=== PATIENT | male | born 1940 | race Caucasian/White ===

== ENCOUNTER → 2017-06-01 | Outpatient (CLI) | payer MEDICARE ==
--- NOTE | 2017-06-01 17:34 | Diagnostic Imaging Report ---
EXAM: Renal Ultrasound INDICATION: \S\CYST OF KIDNEY COMPARISON: Renal ultrasound dated 08/04/2016 TECHNIQUE: Transverse and longitudinal images of the kidneys and bladder were obtained. FINDINGS: Right Kidney: Size: 12.1 cm Echogenicity: Normal Parenchymal thickness: Normal Collecting system: No hydronephrosis Stones: None Cyst/Mass: 1.1 x 1.4 x 1.2 cm and 1.2 x 1.6 x 1.4 cm midpole cysts. 0.8 x 0.8 x 0.7 cm exophytic mid pole cyst. 2.5 x 2.2 x 1.8 cm exophytic inferior pole cyst, previously 1.9 x 2.5 x 21 cm. Left Kidney: Size: 12.2 cm Echogenicity: Normal Parenchymal thickness: Normal Collecting system: No hydronephrosis Stones: None Cyst/Mass: 1.9 x 1.3 x 1.2 cm midpole cyst, previously 1.4 x 1.7 x 1.3 cm. 2.3 x 2 x 2 centimeter exophytic mid/inferior pole cyst, previously 2 x 1.6 x 1.5 cm. Bladder: Unremarkable. Left ureteral jets visualized. IMPRESSION: Slight interval increase in size of the largest bilateral renal cysts within inferior poles when compared to the ultrasound dated 08/04/2016. Additional bilateral renal cysts are not significantly changed, accounting for differences in measurement technique. Signed by: Dr. Dion Shields MD on 06/01/2017 5:30 PM
== END ==
LOC: US 15:30
PROVIDERS: ATTEND Urology
DX: N28.1 Cyst of kidney, acquired (principal)
CPT/HCPCS: 76770

== ENCOUNTER → 2018-03-31 | Day surgery (SDC) | payer MEDICARE ==
[2018-03-30 14:35] LABS: BASOPHILS % 0.7 % (0.0-1.0); EOSINOPHILS # (AUTO) 0.2 (0.0-0.4); HEMATOCRIT 37.6 % (38.2-49.6); HEMOGLOBIN 12.9 g/dL (14.0-18.0); LYMPHOCYTES # (AUTO) 1.2 (1.0-3.2); LYMPHOCYTES % 19.8 % (18.0-39.1); MEAN CORPUSCULAR HEMOGLOBIN 33.2 pg (28-32); MEAN CORPUSCULAR HGB CONC 34.3 g/dL (31-35); MEAN CORPUSCULAR VOLUME 96.7 fL (81-99); MONOCYTES # (AUTO) 0.8 (0.2-0.8); MONOCYTES % 13.3 % (4.4-11.3); NEUTROPHILS # (AUTO) 3.7 (2.1-6.9); NEUTROPHILS % 61.7 % (38.7-80.0); PLATELET COUNT 154 x10e3/uL (140-360); RED BLOOD COUNT 3.89 x10e6/uL (4.3-5.7)
[2018-03-30 14:43] LABS: INR 0.94; PROTHROMBIN TIME 13.4 seconds (11.9-14.5)
[2018-03-30 14:53] LABS: ANION GAP 12.9 mmol/L (8-16); BLOOD UREA NITROGEN 15 mg/dL (7-26); BUN/CREATININE RATIO 14 (6-25); CALCIUM 9.5 mg/dL (8.4-10.2); CARBON DIOXIDE 26 mmol/L (22-29); CHLORIDE 102 mmol/L (98-107); EST GLOMERULAR FILTRATION RATE > 60 ML/MIN (60-); GLUCOSE 99 mg/dL (74-118); POTASSIUM 3.9 mmol/L (3.5-5.1); SODIUM 137 mmol/L (136-145)
--- NOTE | 2018-03-30 16:09 | Diagnostic Imaging Report ---
EXAMINATION: CHEST 2 VIEWS INDICATION: Pre-operative radiograph. COMPARISON: Chest radiograph 09/01/2016. FINDINGS: TUBES and LINES: There is a right-sided dual-chamber pacemaker with leads overlying the right atrium and right ventricle. LUNGS: Lungs are moderately inflated. There is no evidence of pneumonia or pulmonary edema. PLEURA: No pleural effusion or pneumothorax. HEART AND MEDIASTINUM: The cardiomediastinal silhouette is unremarkable. BONES AND SOFT TISSUES: No acute osseous abnormality. Degenerative changes of the visualized spine. UPPER ABDOMEN: No free air under the diaphragm. IMPRESSION: No acute radiographic abnormality. Signed by: Dr. Keily Lozano MD on 03/30/2018 4:05 PM
[2018-03-31] VITALS (8 sets, daily range): BP systolic 157–186; BP diastolic 88–94
[~2018-03-31] VITALS: Ht 180.3 cm; Wt 91.2 kg
[~2018-03-31] MED LIST: BACITRACIN 50,000 UNIT VIAL ONE; CARVEDILOL12.5 MG PO; CEFAZOLIN SOD 1 GM VIAL ONE; FENTANYL CITRATE/PF 100MCG/2 ML INJ ONE; FINASTERIDE5 MG PO; HYDRALAZINE HCL10 MG PO; LIDOCAINE 1% W/EPINEPHRINE 20 ML VIAL ONE; LIDOCAINE HCL 1% LOCAL INJ 20 ML VIAL ONE; MIDAZOLAM HCL 2 MG/2 ML VIAL ONE; OMEGA 3 FISH O1 EACH PO; SODIUM CHLORIDE 0.9% 1000ML 1,000 ML ONE; SODIUM CHLORIDE 0.9% 500ML 1,000 ML ONE; SODIUM CHLORIDE 0.9% 50ML 50 ML ONE
--- OUTSIDE RECORDS SUMMARY | 2018-03-31 10:21 | XMS REPORT | Clinical Summary ---
Author Author [facility] Address Unknown Phone Unavailable Care Team Providers Care Skiver Machine Name Role Phone Asked, No Pcp PCP Unavailable Allergies Not on File Medications Not on file Active Problems Not on file Social History Date Tobacco Use Types Packs/Day Years Used Never Assessed Sex Assigned at Date Recorded Not on file Industry Job Start Date Occupation Not on file Not on file Not on file Travel End Travel History Travel Start No recent travel history available. Last Filed Vital Signs Not on file Plan of Treatment Health Maintenance Due Date Last Done Comments SHINGLES VACCINES (1 of 1990 2) PNEUMOCOCCAL 2005 POLYSACCHARIDE VACCINE AGE 65 AND OVER PNEUMOCOCCAL-13 2005 INFLUENZA VACCINE 09/09/2017 Results Not on fileafter 03/30/2017 Insurance Payer Benefit Subscriber ID Type Phone Address Plan / Group MEDICARE MEDICARE xxxxxxxxxx Medicare [place], [place] PART A AND B AARP AARP xxxxxxxxxxx Commercial SUPPLEMENT Advance Directives Patient has advance care planning documents on file. For more information, maria isabel ramirez contact: Elieser Chan [address] [place], [place] [address] [place] [address]
--- OUTSIDE RECORDS SUMMARY | 2018-03-31 10:21 | XMS REPORT ---
Author Author [facility] Address Unknown Phone Unavailable Care Team Providers Care Roofing Technician Name Role Phone STEPHANIE DAUGHERTY Unavailable Unavailable JAME MCFARLAND Unavailable Unavailable Problems This patient has no known problems. Allergies, Adverse Reactions, Alerts This patient has no known allergies or adverse reactions. Medications This patient has no known medications. Results Test Description Test Time Test Comments Text Results Atomic Results Result Comments CHEST 2 VIEWS 2018-03-30 16:03:[address] [address] Patient Name: KIANA HEARN MR #: [id number] : 1940 Age/Sex: 77/M Req #: [id number] Adm Physician: Ordered by: STEPHANIE DAUGHERTY MD Report #: [id number] Location: [facility] Room/Bed: Procedure: [id number] DX/CHEST 2 VIEWS Exam Date: 03/30/18 Exam Time: 1525 REPORT STATUS: Signed EXAMINATION: CHEST 2 VIEWS INDICATION: Pre-operative radiograph. COMPARISON: Chest radiograph 09/01/2016. FINDINGS: TUBES and LINES: There is a right-sided dual-chamber pacemaker with leads overlying the right atrium and right ventricle. LUNGS: Lungs are moderately inflated. There is no evidence of pneumonia or pulmonary edema. PLEURA: No pleural effusion or pneumothorax. HEART AND MEDIASTINUM: The cardiomediastinal silhouette is unremarkable. BONES AND SOFT TISSUES: No acute osseous abnormality. Degenerative changes of the visualized spine. UPPER ABDOMEN: No free air under the diaphragm. IMPRESSION: No acute radiographic abnormality. Signed by: Dr. Bijan Li MD on 03/30/2018 4:05 PM Dictated By: BIJAN LI MD 160 Transcribed By: OLEGARIO on 03/30/18 1605 COPY TO: STEPHANIE DAUGHERTY MD US RENAL RETROPERITONEAL COMP [place] [address] Patient Name: KIANA HEARN MR #: [id number] : 1940 Age/Sex: 77/M Req #: [id number] Adm Physician: Ordered by: JAME MCFARLAND MD Report #: [id number] Location: US Room/Bed: Procedure: [id number] US/US RENAL RETROPERITONEAL COMP Exam Date: 06/01/17 Exam Time: 1556 REPORT STATUS: Signed EXAM: Renal Ultrasound INDICATION: COMPARISON: Renal ultrasound dated 08/04/2016 TECHNIQUE: Transverse and longitudinal images of the kidneys and bladder were obtained. FINDINGS: Right Kidney: Size: 12.1 cm Echogenicity: Normal Parenchymal thickness: Normal Collecting system: No hydronephrosis Stones: None Cyst/Mass: 1.1 x 1.4 x 1.2 cm and 1.2 x 1.6 x 1.4 cm midpole cysts. 0.8 x 0.8 x 0.7 cm exophytic mid pole cyst. 2.5 x 2.2 x 1.8 cm exophytic inferior pole cyst, previously 1.9 x 2.5 x 21 cm. Left Kidney: Size: 12.2 cm Echogenicity: Normal Parenchymal thickness: Normal Collecting system: No hydronephrosis Stones: None Cyst/Mass: 1.9 x 1.3 x 1.2 cm midpole cyst, previously 1.4 x 1.7 x 1.3 cm. 2.3 x 2 x 2 centimeter exophytic mid/inferior pole cyst, previously 2 x 1.6 x 1.5 cm. Bladder: Unremarkable. Left ureteral jets visualized. IMPRESSION: Slight interval increase in size of the largest bilateral renal cysts within inferior poles when compared to the ultrasound dated 08/04/2016. Additional bilateral renal cysts are not significantly changed, accounting for differences in measurement technique. Signed by: Dr. Dion Venegas MD on 06/01/2017 5:30 PM Dictated By: DION VENEGAS MD 173 Transcribed By: OLEGARIO on 06/01/171729 COPY TO: JAME MCFARLAND MD
--- NOTE | 2018-03-31 10:29 | NUR ---
Received patient to PACU holding room 8. Patient gowned and prepped for procedure. Vital signs stable. IV access obtained. Patient provided with a warm blanket for comfort.
--- NOTE | 2018-03-31 13:45 | NUR ---
Received patient to CCL holding room 10. Patient a&o x 3. Vital signs stable. Patient s/p generator change to right upper chest with pocket revision. Son at bedside.
--- NOTE | 2018-03-31 14:40 | NUR ---
Report given to TIGRE Shanks. Patient sitting up on stretcher eating lunch tray. Patient to discharge at 5pm.
--- NOTE | 2018-03-31 16:45 | NUR ---
Pt meets DC criteria. right shoulder assessed for s/s of complication and presence of hematoma. right arm warm, dry, no discolor, and pulses present. IV removed from right AC . Distal tip appears intact. VS WNL. Pt denies pain, sob, or need at this time. Family at front of hospital (son). Review of discharge paperwork and follow up instructions. [facility] scientficic instruction book in hand. verbalized understanding. Pt to wheelchair and transported to front of hospital. Transferred to private vehicle under own strength w/o incident with DC paperwork in hand. - cgf
--- NOTE | 2018-03-31 19:04 | Operative Report ---
DATE OF PROCEDURE: PROCEDURES: 1. Dual chamber pacemaker replacement. 2. Temporary pacemaker insertion. COMPLICATIONS: None. ANESTHESIA: Versed, fentanyl, and lidocaine. INDICATIONS: Sick sinus syndrome. TECHNIQUE: The patient was draped and prepped in the usual fashion. The right groin was anesthetized with lidocaine. Standard Seldinger technique was used to place a 6-Bengali sheath into the right femoral vein without difficulty. A pacemaker wire was positioned at the apex in the right ventricle. The patient was then re-draped and re-prepped. The left subclavicular area was anesthetized with lidocaine and the pacemaker pocket was opened with 10-blade scalpel. The existing pacemaker generator was dissected free of the pocket. The pocket was irrigated with antibiotic solution. A new ReferStar generator was attached to the existing leads. The new generator was placed in the pocket. The pocket was then closed with 2-0 Vicryl for the subcutaneous closure and 2-0 Vicryl for the subcuticular closure. There were no complications. CONCLUSION: Successful dual chamber pacemaker generator replacement. MD VERA Espinal/MODL /[id number]
== END | disposition home or self-care (01) ==
LOC: CATH LAB 10:19
PROVIDERS: ATTEND Internal Medicine Cardiovascular Disease
DX: Z45.010 Encounter for checking and testing of cardiac pacemaker pulse generator [battery] (principal); I49.5 Sick sinus syndrome; I10 Essential (primary) hypertension; Z01.810 Encounter for preprocedural cardiovascular examination; Z01.812 Encounter for preprocedural laboratory examination; Z01.818 Encounter for other preprocedural examination
CPT/HCPCS: 33228; 36415; 71046; 80048; 85025; 85610; 93005; C1785; J0690; J2001; J2250; J7030; J7040

== ENCOUNTER → 2018-07-29 | Day surgery (SDC) | payer MEDICARE ==
[2018-07-26 15:14] LABS: BASOPHILS % 0.4 % (0.0-1.0); EOSINOPHILS # (AUTO) 0.1 (0.0-0.4); EOSINOPHILS % 1.6 % (0.0-6.0); HEMATOCRIT 38.2 % (38.2-49.6); HEMOGLOBIN 13.1 g/dL (14.0-18.0); LYMPHOCYTES # (AUTO) 1.6 (1.0-3.2); LYMPHOCYTES % 21.4 % (18.0-39.1); MEAN CORPUSCULAR HEMOGLOBIN 33.2 pg (28-32); MEAN CORPUSCULAR HGB CONC 34.3 g/dL (31-35); MEAN CORPUSCULAR VOLUME 96.7 fL (81-99); MONOCYTES # (AUTO) 0.6 (0.2-0.8); MONOCYTES % 8.7 % (4.4-11.3); NEUTROPHILS % 67.8 % (38.7-80.0); PLATELET COUNT 185 x10e3/uL (140-360); RED BLOOD COUNT 3.95 x10e6/uL (4.3-5.7); RED CELL DISTRIBUTION WIDTH 12.7 % (11.7-14.4)
[2018-07-26 15:28] LABS: INR 0.91; PROTHROMBIN TIME 12.7 seconds (11.9-14.5)
[2018-07-26 15:29] LABS: PARTIAL THROMBOPLASTIN TIME 30.3 seconds (23.8-35.5)
[2018-07-26 15:35] LABS: ALANINE AMINOTRANSFERASE 12 IU/L (0-55); ALBUMIN 3.6 g/dL (3.5-5.0); ALBUMIN/GLOBULIN RATIO 1.2 (0.8-2.0); ALKALINE PHOSPHATASE 46 IU/L (40-150); ANION GAP 12.4 mmol/L (8-16); BLOOD UREA NITROGEN 17 mg/dL (7-26); BUN/CREATININE RATIO 15 (6-25); CALCIUM 9.7 mg/dL (8.4-10.2); CARBON DIOXIDE 30 mmol/L (22-29); CHLORIDE 101 mmol/L (98-107); CREATININE, SERUM 1.13 mg/dL (0.72-1.25); EST GLOMERULAR FILTRATION RATE > 60 ML/MIN (60-); GLUCOSE 115 mg/dL (74-118); POTASSIUM 4.4 mmol/L (3.5-5.1); SODIUM 139 mmol/L (136-145)
--- NOTE | 2018-07-26 15:42 | Diagnostic Imaging Report ---
EXAM: CHEST 2 VIEWS, PA and lateral DATE: 07/26/2018 Time stamp on exam: 3:16 PM INDICATION: Preoperative for left heart catheterization COMPARISON: 03/30/2018 FINDINGS: LINES/TUBES: Right chest wall subclavian approach dual lead cardiac device with leads intact again noted. LUNGS: No consolidations or edema. Right lower lobe calcified granuloma. PLEURA: No effusions or pneumothorax. HEART AND MEDIASTINUM: Normal size and contour. BONES AND SOFT TISSUES: No acute findings. Degenerative changes of the spine. IMPRESSION: No acute thoracic abnormality. Signed by: Dr. Ranjith De La Paz DO on 07/26/2018 3:39 PM
[2018-07-29] VITALS (12 sets, daily range): BP systolic 121–158; BP diastolic 76–103
[~2018-07-29] VITALS: Ht 180.3 cm; Wt 93.4 kg
[~2018-07-29] MED LIST changes: -BACITRACIN 50,000 UNIT VIAL ONE; -CEFAZOLIN SOD 1 GM VIAL ONE; +HEPARIN SOD (PORCINE) 1000 UNIT/ML 30ML ONE; +HEPARIN SOD/SOD CHLORIDE 2,000 ML ONE; +IOPAMIDOL 370 MG/ML 200 ML INFUS..BTL INJ ONE; +LASIX40 MG PO; -LIDOCAINE 1% W/EPINEPHRINE 20 ML VIAL ONE; -LIDOCAINE HCL 1% LOCAL INJ 20 ML VIAL ONE; +LIDOCAINE HCL 2% LOCAL 20 ML VIAL ONE; +NITROGLYCERIN/D5W 200 MCG/ML 250 ML ONE; +POTASSIUM CHLO10 ME1 PO; +SODIUM CHLORIDE 0.9% 1000ML 0 ML ONE; -SODIUM CHLORIDE 0.9% 500ML 1,000 ML ONE; -SODIUM CHLORIDE 0.9% 50ML 50 ML ONE; +VERAPAMIL HCL 2.5 MG/ML 2 ML VIAL ONE
--- OUTSIDE RECORDS SUMMARY | 2018-07-29 06:12 | XMS REPORT | Clinical Summary ---
Author Author [facility] Address Unknown Phone Unavailable Care Team Providers Care Social Worker Assistant Name Role Phone Asked, No Pcp PCP Unavailable Allergies No Known Allergies Medications End Date Status Medication Sig Dispensed Refills Start Date Active tamsulosin (FLOMAX) 0.4 Take 0.4 mg 0 mg capsule by mouth daily. Active finasteride (PROSCAR) 5 Take 5 mg by 0 mg tablet mouth daily. Active hydrALAZINE (APRESOLINE) Take 50 mg by 0 50 MG tablet mouth 3 (three) times a day. Active carvedilol (COREG) 25 MG Take 25 mg by 0 tablet mouth daily. Active Problems No known active problems Encounters Care Team Description Date Type Specialty Alex Jose MD GREENLIGHT LASER TRANSURETHRAL RESECTION OF PROSTATE 04/14/2018 Surgery General Surgery Lety Macario FNP-C 04/14/2018 Anesthesia General Surgery Event Alex Jose MD 04/14/2018 Hospital General Surgery Encounter after 07/28/2017 Family History Medical History Relation Name Comments Cancer Father brain Cancer Mother brain Relation Name Status Comments Father Mother Social History Date Tobacco Use Types Packs/Day Years Used Quit: 1960 Former Smoker Smokeless Tobacco: Never Used Alcohol Use Drinks/Week oz/Week Comments Yes 3x/week Sex Assigned at Date Recorded Not on file Industry Job Start Date Occupation Not on file Not on file Not on file Travel End Travel History Travel Start No recent travel history available. Last Filed Vital Signs Time Taken Vital Sign Reading 04/14/2018 11:23 AM YARD OPERATOR Blood Pressure 145/74 04/14/2018 11:23 AM YARD OPERATOR Pulse 61 04/14/2018 9:05 AM YARD OPERATOR Temperature 36.2 C (97.2 F) 04/14/2018 11:23 AM YARD OPERATOR Respiratory Rate 18 04/14/2018 11:23 AM YARD OPERATOR Oxygen Saturation 98% - Inhaled Oxygen - Concentration 04/14/2018 6:15 AM YARD OPERATOR Weight 95.3 kg (210 lb) 04/14/2018 6:15 AM YARD OPERATOR Height 180.3 cm (5' 11") 04/14/2018 6:15 AM YARD OPERATOR Body Mass Index 29.29 Plan of Treatment Health Maintenance Due Date Last Done Comments SHINGLES VACCINES (#1) 1990 65+ PNEUMOCOCCAL VACCINE 2005 (1 of 2 - PCV13) INFLUENZA VACCINE 09/09/2018 Procedures Comments Procedure Name Priority Date/Time Associated Diagnosis NJ AN ELECTIVE Routine 04/14/2018 SUPRAGLOTTIC AIRWAY 7:36 AM YARD OPERATOR Procedure Note - Rajendra Kendrick CRNA - 04/14/2018 7:36 AM YARD OPERATOR Airway Date/Time: 04/14/2018 7:31 AM Performed by: Rajendra Kendrick CRNA Authorized by: Emory Jhaveri MD Location: OR Urgency: Elective Resident/C RNA/AA: Rajendra Kendrick CRNA Performed by: resident/C RNA/AA Preoxygena loyda with 100% O2: Yes C-spine Precaution s Maintained Throughout : Yes Mask Ventilatio n: Easy mask Final Airway Type: Supraglott ic airway Final LMA: I-Gel LMA Size: 5 Number of Attempts at Approach: 1 after 07/28/2017 Results Not on fileafter 07/28/2017 Insurance Type Payer Benefit Subscriber ID Effective Phone Address Plan / Dates Group Medicare MEDICARE MEDICARE xxxxxxxxxxx 2005-P [place], PART A AND resent [place] B Commercial AARP AARP xxxxxxxxxxx 2014-P SUPPLEMENT resent Advance Directives Patient has advance care planning documents on file. For more information, maria isabel ramirez contact: Elieser Chan [address] [place] [address]
--- NOTE | 2018-07-29 08:34 | Operative Report ---
DATE OF PROCEDURE: SURGEON: Shashi Escobedo MD PROCEDURE: Left heart catheterization. INDICATION: 1. Abnormal stress test. 2. Dyspnea. 3. Coronary artery disease. ANESTHESIA: Versed, fentanyl, and lidocaine. COMPLICATIONS: None. TECHNIQUE: The right wrist was draped and prepped in the usual manner. The area was anesthetized with lidocaine. Standard Seldinger technique was used to place a six-Martiniquais sheath into the right radial artery without difficulty. The Putnam catheter was used to selectively engage the left coronary artery and to selectively engage the right coronary artery. There were no complications. RESULTS: As follows: 1. There is a normal left main trunk. 2. There is a large left anterior descending artery, which gave rise to a medium-sized diagonal branch. There was minimal disease in the left anterior descending artery and diagonal branch. 3. There was a medium-sized AV circumflex artery, which gave rise to a large bifurcating obtuse marginal branch. There was minimal disease in the circumflex system. 4. There was a large dominant right coronary artery with minimal disease. 5. The left ventriculogram was not done, but a recent echocardiogram showed an ejection fraction of 40%. CONCLUSION: The patient has minimal coronary artery disease. Shashi Escobedo MD D[facility]/MODL /[id number]
--- NOTE | 2018-07-29 09:45 | NUR ---
0945am Received pt in Rm #9 Identiferx2 [facility] diagnostic no fix. Received report Emory LANDEROS. Back to baseline orientation Respiration regular 100% RA. Abdomen soft and non tender Bilateral PPx4 PT/DP. Iv infusing w/o s/s infiltration. DC plans discussed and will re review with family friend on arrival for pickup per pt approval Pat . Rt TR band with normal neuro vascular function. No oozing or hematoma No gross issues pain pallor pressure or dysrhythmia. 1000 Tr band air release continued Normal neuro vascular function.No bleed. 1015 Tr band air release continue Normal neuro vascular function. No Bleed. 1030 Tr band air release continued Normal neuro vascular function No Bleed. Denies c/o Cp or SOB No gross issues pain pallor pressure or dysrhythmia. NORMAL NEURO VASCULAR FUNCTION. Coban with 2x2 gauze Tegaderm and Coban with arm splint. ds/rn
--- NOTE | 2018-07-29 11:00 | NUR ---
1100am TR-band air removal completed No hematoma or bleeding No gross issues pain pallor pressure or dysrhythmia. Positive neuro vascular function. Discussed dc plans with family friend motor coach bus driver Signed papers and copies dc plans given to pt. Iv removed. No s/s infiltration.Coban dressing in place.Aware of importance of POC and f/o care 1wk. Discharged to home with motor coach bus driver per w/c .No gross issues pain pallor pressure or dysrhythmia. To car per [facility] escort. Has copies dc papers. americo/rn
== END | disposition home or self-care (01) ==
LOC: CATH LAB 06:06
PROVIDERS: ATTEND Internal Medicine Cardiovascular Disease
DX: I25.10 Atherosclerotic heart disease of native coronary artery without angina pectoris (principal); R94.39 Abnormal result of other cardiovascular function study; I10 Essential (primary) hypertension; Z01.810 Encounter for preprocedural cardiovascular examination; Z01.812 Encounter for preprocedural laboratory examination; Z01.818 Encounter for other preprocedural examination; Z68.32 Body mass index [BMI] 32.0-32.9, adult; Z95.0 Presence of cardiac pacemaker
CPT/HCPCS: 36415; 71046; 80053; 85025; 85610; 85730; 93005; 93454; C1769; C1887; J1644; J2001; J2250; J7030; Q9967

== ENCOUNTER → 2018-08-26 | Day surgery (SDC) | payer MEDICARE ==
[~2018-08-26] MED LIST changes: +CEFAZOLIN SOD 1 GM/NS 50ML 50 ML IV ONE; -HEPARIN SOD (PORCINE) 1000 UNIT/ML 30ML ONE; -HEPARIN SOD/SOD CHLORIDE 2,000 ML ONE; -IOPAMIDOL 370 MG/ML 200 ML INFUS..BTL INJ ONE; +LABETALOL HCL 20 ML ONE; -LIDOCAINE HCL 2% LOCAL 20 ML VIAL ONE; +LIDOCAINE HCL 2% LOCAL INJ 5 ML SDV VIAL INJ ONE; +METOPROLOL TARTRATE INJ 1 MG/ML VIAL ONE; -MIDAZOLAM HCL 2 MG/2 ML VIAL ONE; -NITROGLYCERIN/D5W 200 MCG/ML 250 ML ONE; +ONDANSETRON HCL INJ 2MG/ML 2ML 2 MG/ML VIAL ONE; +PROPOFOL IV EMULSION 10 MG/ML 20 ML VIAL ONE; +PROPRANOLOL HCL 1 MG/ML VIAL ONE; -SODIUM CHLORIDE 0.9% 1000ML 0 ML ONE; -SODIUM CHLORIDE 0.9% 1000ML 1,000 ML ONE; -VERAPAMIL HCL 2.5 MG/ML 2 ML VIAL ONE
--- OUTSIDE RECORDS SUMMARY | 2018-08-26 05:38 | XMS REPORT | Clinical Summary ---
Author Author [facility] Organization [facility] Address Unknown Phone Unavailable Care Team Providers Care Oval Or Circular Glass Cutter Name Role Phone Asked, No Pcp PCP [...] MD 04/14/2018 Hospital General Surgery Encounter after 08/25/2017 Family History Medical History Relation Name Comments [...] Taken Vital Sign Reading 04/14/2018 11:23 AM ASSOCIATE PROFESSOR OF MATHEMATICS Blood Pressure 145/74 04/14/2018 11:23 AM ASSOCIATE PROFESSOR OF MATHEMATICS Pulse 61 04/14/2018 9:05 AM ASSOCIATE PROFESSOR OF MATHEMATICS Temperature 36.2 C (97.2 F) 04/14/2018 11:23 AM ASSOCIATE PROFESSOR OF MATHEMATICS Respiratory Rate 18 04/14/2018 11:23 AM ASSOCIATE PROFESSOR OF MATHEMATICS Oxygen Saturation 98% - Inhaled Oxygen - Concentration 04/14/2018 6:15 AM ASSOCIATE PROFESSOR OF MATHEMATICS Weight 95.3 kg (210 lb) 04/14/2018 6:15 AM ASSOCIATE PROFESSOR OF MATHEMATICS Height 180.3 cm (5' 11") 04/14/2018 6:15 AM ASSOCIATE PROFESSOR OF MATHEMATICS Body Mass Index 29.29 Plan of Treatment Health Maintenance Due Date Last Done Comments SHINGLES VACCINES (#1) 1990 65+ PNEUMOCOCCAL VACCINE 2005 (1 of 2 - PCV13) INFLUENZA VACCINE 09/09/2018 Procedures Comments Procedure Name Priority Date/Time Associated Diagnosis RI AN ELECTIVE Routine 04/14/2018 SUPRAGLOTTIC AIRWAY 7:36 AM ASSOCIATE PROFESSOR OF MATHEMATICS Procedure Note - Rajendra Kendrick CRNA - 04/14/2018 7:36 AM ASSOCIATE PROFESSOR OF MATHEMATICS Airway Date/Time: 04/14/2018 7:31 AM Performed by: [...] Number of Attempts at Approach: 1 after 08/25/2017 Results Not on fileafter 08/25/2017 Insurance Type Payer Benefit Subscriber ID Effective Phone Address Plan / Dates Group Medicare MEDICARE MEDICARE xxxxxxxxxxx 2005-P [place], PART A AND resent [place] B Commercial AARP AARP xxxxxxxxxxx 2014-P SUPPLEMENT resent Advance Directives Patient has advance care planning documents on file. For more information, maria isabel ramirez contact: Elieser Chan [address] [place] [address]
[2018-08-26 09:00] VITALS: BP 161/97
--- NOTE | 2018-09-06 19:41 | Operative Report ---
DATE OF PROCEDURE: 08/26/2018 SURGEON: Edis Antunez MD PREOPERATIVE DIAGNOSIS: Stenosing tenosynovitis of right long finger. POSTOPERATIVE DIAGNOSIS: Stenosing tenosynovitis of right long finger. OPERATION PERFORMED: Tenovaginotomy of right long finger. ANESTHESIA: General. HISTORY: The patient is a 78-year-old right hand-dominant male, who presents with stenosing tenosynovitis of the right long finger that is recalcitrant to conservative treatment. The risks, benefits, and alternatives of treatment were discussed with the patient and they are prepared to undergo the procedure as outlined. DESCRIPTION OF PROCEDURE: The patient was brought to the operating theater. After the induction of adequate general/regional anesthesia, the patient was prepped and draped in a supine position. A time out was performed by the entire operating room team. An oblique incision was marked out over the A1 monique of the right long finger. The upper extremity was exsanguinated, and a tourniquet was inflated to a pressure of 250 mmHg. The incision was made through the skin and subcutaneous tissues. All venous tributaries were controlled with bipolar cautery. The incision was deepened through the palmar tissues. The neurovascular bundles on the radial and ulnar sides of the flexor tendon sheath were identified and retracted away from the flexor tendon sheath and preserved. The A1 monique of the affected finger was identified and incised longitudinally, taking care to protect and preserve the flexor tendons within the sheath. After the complete length of the monique had been transected, the tendons were placed in a range of motion. There was noted to be good motion without any locking. The wound was then copiously irrigated with bacteriostatic saline and closed with 5-0 nylon in an interrupted horizontal mattress fashion. A Marcaine field block was performed at the operative site. The tourniquet was deflated. All the fingers pinked up nicely. A sterile bulky conforming bandage was applied to the hand, and the patient was returned to the recovery room in satisfactory condition and was discharged with a postoperative instruction sheet as well as a followup appointment. Edis Antunez MD ER/MODL /[id number]
== END | disposition home or self-care (01) ==
LOC: OR 05:36
PROVIDERS: ATTEND Plastic Surgery
DX: M65.331 Trigger finger, right middle finger (principal); I12.9 Hypertensive chronic kidney disease with stage 1 through stage 4 chronic kidney disease, or unspecified chronic kidney disease; N18.2 Chronic kidney disease, stage 2 (mild); E78.5 Hyperlipidemia, unspecified; Z95.0 Presence of cardiac pacemaker
CPT/HCPCS: 26055; J0690; J1800; J2001; J2405; J2704; J3010; J3490

== ENCOUNTER 2019-04-07 08:51 | Emergency (ER) | payer MEDICARE ==
[~2019-04-07] VITALS: Ht 180.3 cm; Wt 93.4 kg
[~2019-04-07 08:51] MED LIST changes: -CEFAZOLIN SOD 1 GM/NS 50ML 50 ML IV ONE; -FENTANYL CITRATE/PF 100MCG/2 ML INJ ONE; -LABETALOL HCL 20 ML ONE; -LIDOCAINE HCL 2% LOCAL INJ 5 ML SDV VIAL INJ ONE; -METOPROLOL TARTRATE INJ 1 MG/ML VIAL ONE; -ONDANSETRON HCL INJ 2MG/ML 2ML 2 MG/ML VIAL ONE; -PROPOFOL IV EMULSION 10 MG/ML 20 ML VIAL ONE; -PROPRANOLOL HCL 1 MG/ML VIAL ONE
[2019-04-07] MEDS ORDERED: ACETAMINOPHEN 325 MG TAB PO ONE (09:15)
--- NOTE | 2019-04-07 10:21 | Diagnostic Imaging Report ---
EXAMINATION: KNEE LEFT THREE VIEWS INDICATION: Left knee pain COMPARISON: None FINDINGS: No acute fracture or dislocation. Alignment is anatomic. Moderate suprapatellar joint effusion. Mild chondrocalcinosis. Scattered atherosclerotic arterial calcifications. IMPRESSION: No acute osseous injury. Moderate suprapatellar joint effusion. Signed by: Cecelia Sorenson MD on 04/07/2019 10:19 AM
[2019-04-07 10:50] VITALS: BP 168/96
== END 2019-04-07 10:53 | disposition home or self-care (01) ==
LOC: ER 08:51
DX: S83.522A Sprain of posterior cruciate ligament of left knee, initial encounter (principal); X50.1XXA Overexertion from prolonged static or awkward postures, initial encounter; Y99.0 Civilian activity done for income or pay; I10 Essential (primary) hypertension
CPT/HCPCS: 99282

== ENCOUNTER 2019-04-28 08:52 | Outpatient (RCR) | payer MEDICARE | END 2019-05-10 | LOC: PT 08:52 | PROVIDERS: ATTEND Specialist | DX: M17.12 Unilateral primary osteoarthritis, left knee (principal); S76.812A Strain of other specified muscles, fascia and tendons at thigh level, left thigh, initial encounter ==

== ENCOUNTER 2020-07-21 06:09 | Observation (INO) | payer MEDICARE ==
[~2020-07-21] VITALS: Ht 180.3 cm; Wt 97.6 kg
[2020-07-21] MEDS ORDERED: ONDANSETRON HCL INJ 2MG/ML 2ML 2 MG/ML VIAL IV STA (06:18)
[2020-07-21] MEDS ORDERED: HYDROCODONE/APAP 5MG-325MG TAB PO ONE (06:30)
[2020-07-21] MEDS ORDERED: SODIUM CHLORIDE 0.9% 500ML 500 ML IV ONE (06:30)
[2020-07-21 06:34] LABS: BASOPHILS % 0.4 % (0.0-1.0); EOSINOPHILS % 0.2 % (0.0-6.0); HEMATOCRIT 34.8 % (38.2-49.6); LYMPHOCYTES # (AUTO) 0.3 (1.0-3.2); LYMPHOCYTES % 3.3 % (18.0-39.1); MEAN CORPUSCULAR HEMOGLOBIN 33.2 pg (28-32); MEAN CORPUSCULAR HGB CONC 34.5 g/dL (31-35); MEAN CORPUSCULAR VOLUME 96.4 fL (81-99); MONOCYTES # (AUTO) 0.5 (0.2-0.8); MONOCYTES % 5.6 % (4.4-11.3); NEUTROPHILS # (AUTO) 8.4 (2.1-6.9); NEUTROPHILS % 90.1 % (38.7-80.0); PLATELET COUNT 195 x10e3/uL (140-360); RED BLOOD COUNT 3.61 x10e6/uL (4.3-5.7); RED CELL DISTRIBUTION WIDTH 13.2 % (11.7-14.4)
[2020-07-21 06:55] LABS: ALANINE AMINOTRANSFERASE 11 IU/L (0-55); ALBUMIN 3.6 g/dL (3.5-5.0); ALBUMIN/GLOBULIN RATIO 1.1 (0.8-2.0); ALKALINE PHOSPHATASE 56 IU/L (40-150); ANION GAP 13.8 mmol/L (8-16); BLOOD UREA NITROGEN 15 mg/dL (7-26); BUN/CREATININE RATIO 15 (6-25); CALCIUM 9.1 mg/dL (8.4-10.2); CARBON DIOXIDE 24 mmol/L (22-29); CHLORIDE 102 mmol/L (98-107); CREATINE KINASE 27 IU/L (30-200); CREATININE, SERUM 0.97 mg/dL (0.72-1.25); EST GLOMERULAR FILTRATION RATE > 60 ML/MIN (60-); GLUCOSE 158 mg/dL (74-118); MAGNESIUM 1.6 MG/DL (1.3-2.1); POTASSIUM 3.8 mmol/L (3.5-5.1); SODIUM 136 mmol/L (136-145)
[2020-07-21] MEDS ORDERED: CARVEDILOL25 MG PO (09:01)
[2020-07-21] MEDS ORDERED: HYDRALAZINE HCL50 MG PO (09:01)
[2020-07-21] MEDS ORDERED: ONDANSETRON HCL INJ 2MG/ML 2ML 2 MG/ML VIAL IV PRN (09:45)
[2020-07-21] MEDS ORDERED: HYDROCODONE/APAP 5MG-325MG TAB PO PRN (10:00)
[2020-07-21] MEDS ORDERED: FUROSEMIDE INJ 10 MG/ML 4 ML VIAL IV NR (10:00)
[2020-07-21] MEDS: ASPIRIN 81 MG ENTERIC COATED PO SCH (11:30)
[2020-07-21 12:00] VITALS: BP 157/83
[2020-07-21] MEDS: FAMOTIDINE 20 MG/2 ML VIAL IV SCH ×2 (12:10→21:47)
[2020-07-21 12:23] VITALS: BP 157/83
[2020-07-21 12:32] LABS: CREATINE KINASE MB 0.8 ng/mL (0-5.0)
[2020-07-21] MEDS ORDERED: DOCUSATE SODIUM 100 MG CAP PO PRN (13:15)
[2020-07-21] MEDS ORDERED: ACETAMINOPHEN 325 MG TAB PO PRN (13:15)
[2020-07-21] MEDS ORDERED: POTASSIUM CHLORIDE 10MEQ EA PO NR (15:30)
[2020-07-21 15:50] VITALS: BP 135/72
[2020-07-21 20:00] VITALS: BP 137/71
[2020-07-21 20:19] VITALS: BP 137/77
[2020-07-21 20:22] LABS: CREATINE KINASE MB 1.7 ng/mL (0-5.0)
[2020-07-21] MEDS: FUROSEMIDE INJ 10 MG/ML 4 ML VIAL IV SCH (20:24)
[2020-07-21] MEDS: VALSARTAN/SACUBITRIL 24MG/26MG 1 EA TAB PO SCH (20:24)
[2020-07-21] MEDS ORDERED: ZOLPIDEM TARTRATE 5 MG TAB PO PRN (21:00)
[2020-07-22 00:02] VITALS: BP 133/75
[2020-07-22 04:00] VITALS: BP 117/79
[2020-07-22 05:52] LABS: BASOPHILS % 0.9 % (0.0-1.0); EOSINOPHILS # (AUTO) 0.2 (0.0-0.4); EOSINOPHILS % 5.2 % (0.0-6.0); HEMATOCRIT 32.5 % (38.2-49.6); HEMOGLOBIN 10.9 g/dL (14.0-18.0); LYMPHOCYTES # (AUTO) 0.6 (1.0-3.2); LYMPHOCYTES % 13.9 % (18.0-39.1); MEAN CORPUSCULAR HEMOGLOBIN 33.1 pg (28-32); MEAN CORPUSCULAR HGB CONC 33.5 g/dL (31-35); MEAN CORPUSCULAR VOLUME 98.8 fL (81-99); MONOCYTES # (AUTO) 0.7 (0.2-0.8); MONOCYTES % 15.3 % (4.4-11.3); NEUTROPHILS # (AUTO) 2.8 (2.1-6.9); PLATELET COUNT 172 x10e3/uL (140-360); RED BLOOD COUNT 3.29 x10e6/uL (4.3-5.7); RED CELL DISTRIBUTION WIDTH 13.5 % (11.7-14.4)
[2020-07-22 06:14] LABS: ALANINE AMINOTRANSFERASE 9 IU/L (0-55); ALKALINE PHOSPHATASE 44 IU/L (40-150); ANION GAP 11.5 mmol/L (8-16); BLOOD UREA NITROGEN 18 mg/dL (7-26); BUN/CREATININE RATIO 17 (6-25); CALCIUM 8.8 mg/dL (8.4-10.2); CARBON DIOXIDE 28 mmol/L (22-29); CHLORIDE 103 mmol/L (98-107); CHOLESTEROL 123 MD/DL (0-199); CREATININE, SERUM 1.04 mg/dL (0.72-1.25); EST GLOMERULAR FILTRATION RATE > 60 ML/MIN (60-); GLUCOSE 116 mg/dL (74-118); HDL CHOLESTEROL 41 MG/DL (40-60); LDL CHOLESTEROL 67 MG/DL (60-130); POTASSIUM 3.5 mmol/L (3.5-5.1); SODIUM 139 mmol/L (136-145); TRIGLYCERIDES 73 MG/DL (0-149)
[2020-07-22 08:34] VITALS: BP 151/87
[2020-07-22 08:59] VITALS: BP 151/87
[2020-07-22] MEDS ORDERED: CARVEDILOL 12.5 MG TAB PO SCH (09:00)
[2020-07-22] MEDS: ASPIRIN 81 MG ENTERIC COATED PO SCH (09:05)
[2020-07-22] MEDS: VALSARTAN/SACUBITRIL 24MG/26MG 1 EA TAB PO SCH (09:05)
[2020-07-22] MEDS: FAMOTIDINE 20 MG/2 ML VIAL IV SCH (09:23)
[2020-07-22] MEDS: FUROSEMIDE INJ 10 MG/ML 4 ML VIAL IV SCH (09:23)
[2020-07-22 12:35] VITALS: BP 145/80
[2020-07-22 16:51] VITALS: BP 166/97
== END 2020-07-22 18:39 | disposition left against medical advice (07) ==
LOC: ER 06:20 → ERHOLD 09:40 → MED/SURG2 11:50
PROVIDERS: ADMIT Internal Medicine; ATTEND Internal Medicine
DX: I11.0 Hypertensive heart disease with heart failure (principal); I50.43 Acute on chronic combined systolic (congestive) and diastolic (congestive) heart failure; E16.2 Hypoglycemia, unspecified; Z87.891 Personal history of nicotine dependence; Z20.822 Contact with and (suspected) exposure to COVID-19; I25.10 Atherosclerotic heart disease of native coronary artery without angina pectoris
CPT/HCPCS: 36415 ×2; 70450; 71045; 80053 ×2; 80061; 82550 ×2; 82553 ×2; 83735; 83880; 84484 ×2; 85025 ×2; 93005; 93306; 99284; G0378 ×2; J1940 ×2; J2405; J7040; U0002

== ENCOUNTER 2020-12-20 18:05 | Inpatient (IN) | payer MEDICARE ==
[~2020-12-20] VITALS: Ht 180.3 cm; Wt 97.7 kg
[~2020-12-20 18:05] MED LIST changes: +CARVEDILOL25 MG PO; +HYDRALAZINE HCL50 MG PO
[2020-12-20 18:33] LABS: BASOPHILS # (AUTO) 0.1 (0.0-0.1); BASOPHILS % 0.7 % (0.0-1.0); EOSINOPHILS # (AUTO) 0.1 (0.0-0.4); EOSINOPHILS % 1.6 % (0.0-6.0); HEMATOCRIT 34.5 % (38.2-49.6); HEMOGLOBIN 11.9 g/dL (14.0-18.0); LYMPHOCYTES % 14.3 % (18.0-39.1); MEAN CORPUSCULAR HEMOGLOBIN 33.5 pg (28-32); MEAN CORPUSCULAR HGB CONC 34.5 g/dL (31-35); MEAN CORPUSCULAR VOLUME 97.2 fL (81-99); MONOCYTES # (AUTO) 0.8 (0.2-0.8); MONOCYTES % 11.2 % (4.4-11.3); NEUTROPHILS # (AUTO) 4.9 (2.1-6.9); NEUTROPHILS % 71.8 % (38.7-80.0); PLATELET COUNT 186 x10e3/uL (140-360); RED BLOOD COUNT 3.55 x10e6/uL (4.3-5.7); RED CELL DISTRIBUTION WIDTH 13.3 % (11.7-14.4)
[2020-12-20 18:40] LABS: INR 1.01; PARTIAL THROMBOPLASTIN TIME 31.9 seconds (23.8-35.5); PROTHROMBIN TIME 14.1 seconds (11.9-14.5)
[2020-12-20 18:49] LABS: ALBUMIN 3.9 g/dL (3.5-5.0); ALBUMIN/GLOBULIN RATIO 1.3 (0.8-2.0); CALCIUM 9.1 mg/dL (8.4-10.2); CREATININE, SERUM 1.03 mg/dL (0.72-1.25)
[2020-12-20 18:55] LABS: CREATINE KINASE MB 1.2 ng/mL (0-5.0)
[2020-12-20] MEDS ORDERED: FUROSEMIDE INJ 10 MG/ML 4 ML VIAL IV ONE (20:15)
[2020-12-20] MEDS ORDERED: ACETAMINOPHEN 325 MG TAB PO ONE (20:15)
[2020-12-20] MEDS ORDERED: ACETAMINOPHEN 325 MG TAB ONE (20:20)
[2020-12-20 21:05] VITALS: BP 187/107
[2020-12-20] MEDS ORDERED: CARVEDILOL 12.5 MG TAB PO ONE (22:00)
[2020-12-20] MEDS ORDERED: HYDRALAZINE HCL 25 MG TAB PO ONE (22:00)
[2020-12-20 22:01] VITALS: BP 187/107
[2020-12-20 22:06] VITALS: BP 187/107
[2020-12-21] VITALS (7 sets, daily range): BP systolic 130–165; BP diastolic 73–97
[2020-12-21 05:26] LABS: BASOPHILS % 0.6 % (0.0-1.0); EOSINOPHILS # (AUTO) 0.1 (0.0-0.4); EOSINOPHILS % 2.8 % (0.0-6.0); HEMATOCRIT 33.7 % (38.2-49.6); HEMOGLOBIN 11.6 g/dL (14.0-18.0); LYMPHOCYTES # (AUTO) 0.9 (1.0-3.2); LYMPHOCYTES % 17.6 % (18.0-39.1); MEAN CORPUSCULAR HEMOGLOBIN 33.6 pg (28-32); MEAN CORPUSCULAR HGB CONC 34.4 g/dL (31-35); MEAN CORPUSCULAR VOLUME 97.7 fL (81-99); MONOCYTES # (AUTO) 0.6 (0.2-0.8); MONOCYTES % 11.3 % (4.4-11.3); NEUTROPHILS # (AUTO) 3.3 (2.1-6.9); NEUTROPHILS % 67.3 % (38.7-80.0); PLATELET COUNT 162 x10e3/uL (140-360); RED BLOOD COUNT 3.45 x10e6/uL (4.3-5.7); RED CELL DISTRIBUTION WIDTH 13.3 % (11.7-14.4)
[2020-12-21 05:50] LABS: ANION GAP 12.4 mmol/L (8-16); CALCIUM 9.1 mg/dL (8.4-10.2); CREATININE, SERUM 0.93 mg/dL (0.72-1.25); POTASSIUM 3.4 mmol/L (3.5-5.1)
[2020-12-21] MEDS: HYDRALAZINE HCL 100 MG TABLET PO SCH (09:03)
[2020-12-21] MEDS: OMEGA 3 POLYUNSAT FATTY ACIDS 1000 MG SOFTGEL PO SCH (09:03)
[2020-12-21] MEDS: CARVEDILOL 12.5 MG TAB PO SCH (09:54)
[2020-12-21] MEDS: SACUBITRIL/VALSARTAN 1 EACH TABLET PO SCH (13:53)
[2020-12-21] MEDS: ASPIRIN 81 MG ENTERIC COATED PO SCH (14:52)
[2020-12-21] MEDS: POTASSIUM CHLORIDE 10MEQ EA PO SCH (17:09)
[2020-12-21] MEDS ORDERED: ACETAMINOPHEN 325 MG TAB PO PRN (19:30)
[2020-12-21] MEDS ORDERED: ONDANSETRON HCL INJ 2MG/ML 2ML 2 MG/ML VIAL IV PRN (19:30)
[2020-12-21] MEDS ORDERED: HYDRALAZINE HCL 20 MG/ML VIAL IV PRN (19:30)
[2020-12-21] MEDS ORDERED: POLYETHYLENE GLYCOL 3350 17 GM PACK PO PRN (19:30)
[2020-12-21] MEDS: FUROSEMIDE INJ 10 MG/ML 4 ML VIAL IV SCH (21:04)
[2020-12-21] MEDS: ATORVASTATIN 40 MG TAB PO SCH (21:04)
[2020-12-21] MEDS: TAMSULOSIN HCL 0.4 MG CAP PO SCH (21:04)
[2020-12-21] MEDS: ACETAMIN/BUTALBITAL/CAFFEINE TAB PO PRN (21:04)
[2020-12-22] VITALS (7 sets, daily range): BP systolic 97–144; BP diastolic 67–90
[2020-12-22 07:12] LABS: ANION GAP 14.8 mmol/L (8-16); CALCIUM 10.6 mg/dL (8.4-10.2); CREATININE, SERUM 1.09 mg/dL (0.72-1.25); POTASSIUM 3.8 mmol/L (3.5-5.1)
[2020-12-22] MEDS: DOCUSATE SODIUM 100 MG CAP PO SCH ×2 (08:33→16:48)
[2020-12-22] MEDS: ASPIRIN 81 MG ENTERIC COATED PO SCH (08:33)
[2020-12-22] MEDS: FUROSEMIDE INJ 10 MG/ML 4 ML VIAL IV SCH ×2 (08:33→21:33)
[2020-12-22] MEDS: OMEGA 3 POLYUNSAT FATTY ACIDS 1000 MG SOFTGEL PO SCH (08:34)
[2020-12-22] MEDS: CARVEDILOL 12.5 MG TAB PO SCH (08:34)
[2020-12-22] MEDS: HYDRALAZINE HCL 100 MG TABLET PO SCH (08:34)
[2020-12-22] MEDS: SACUBITRIL/VALSARTAN 1 EACH TABLET PO SCH (08:34)
[2020-12-22] MEDS: POTASSIUM CHLORIDE 10MEQ EA PO SCH ×2 (08:34→16:48)
[2020-12-22] MEDS ORDERED: SACUBITRIL/VALSARTAN 1 EACH TABLET PO SCH (09:00)
[2020-12-22] MEDS: ATORVASTATIN 40 MG TAB PO SCH (21:33)
[2020-12-22] MEDS: TAMSULOSIN HCL 0.4 MG CAP PO SCH (21:33)
[2020-12-22] MEDS: ACETAMIN/BUTALBITAL/CAFFEINE TAB PO PRN (23:30)
[2020-12-23] VITALS (9 sets, daily range): BP systolic 104–132; BP diastolic 67–89
[2020-12-23 06:41] LABS: BASOPHILS % 0.4 % (0.0-1.0); EOSINOPHILS # (AUTO) 0.1 (0.0-0.4); EOSINOPHILS % 1.7 % (0.0-6.0); HEMATOCRIT 40.6 % (38.2-49.6); HEMOGLOBIN 14.3 g/dL (14.0-18.0); LYMPHOCYTES # (AUTO) 1.1 (1.0-3.2); LYMPHOCYTES % 12.6 % (18.0-39.1); MEAN CORPUSCULAR HEMOGLOBIN 33.9 pg (28-32); MEAN CORPUSCULAR HGB CONC 35.2 g/dL (31-35); MEAN CORPUSCULAR VOLUME 96.2 fL (81-99); MONOCYTES % 11.9 % (4.4-11.3); NEUTROPHILS # (AUTO) 6.1 (2.1-6.9); NEUTROPHILS % 72.9 % (38.7-80.0); PLATELET COUNT 170 x10e3/uL (140-360); RED BLOOD COUNT 4.22 x10e6/uL (4.3-5.7); RED CELL DISTRIBUTION WIDTH 13.4 % (11.7-14.4)
[2020-12-23 07:04] LABS: ALBUMIN 3.7 g/dL (3.5-5.0); ALBUMIN/GLOBULIN RATIO 1.2 (0.8-2.0); ALKALINE PHOSPHATASE 41 IU/L (40-150); ANION GAP 15.4 mmol/L (8-16); BLOOD UREA NITROGEN 23 mg/dL (7-26); BUN/CREATININE RATIO 21 (6-25); CALCIUM 9.9 mg/dL (8.4-10.2); CARBON DIOXIDE 25 mmol/L (22-29); CHLORIDE 104 mmol/L (98-107); CREATININE, SERUM 1.08 mg/dL (0.72-1.25); EST GLOMERULAR FILTRATION RATE 66 ML/MIN (60-); GLUCOSE 121 mg/dL (74-118); POTASSIUM 3.4 mmol/L (3.5-5.1); SODIUM 141 mmol/L (136-145)
[2020-12-23 07:06] LABS: ALANINE AMINOTRANSFERASE < 6 IU/L (0-55)
[2020-12-23] MEDS: ASPIRIN 81 MG ENTERIC COATED PO SCH (08:36)
[2020-12-23] MEDS: FUROSEMIDE INJ 10 MG/ML 4 ML VIAL IV SCH (08:36)
[2020-12-23] MEDS: DOCUSATE SODIUM 100 MG CAP PO SCH ×2 (08:36→16:00)
[2020-12-23] MEDS: HYDRALAZINE HCL 100 MG TABLET PO SCH (08:37)
[2020-12-23] MEDS: CARVEDILOL 12.5 MG TAB PO SCH (08:37)
[2020-12-23] MEDS: SACUBITRIL/VALSARTAN 1 EACH TABLET PO SCH (08:37)
[2020-12-23] MEDS: POTASSIUM CHLORIDE 10MEQ EA PO SCH ×2 (08:38→16:00)
[2020-12-23] MEDS: OMEGA 3 POLYUNSAT FATTY ACIDS 1000 MG SOFTGEL PO SCH (08:38)
[2020-12-23] MEDS: TAMSULOSIN HCL 0.4 MG CAP PO SCH (19:37)
[2020-12-23] MEDS: ATORVASTATIN 40 MG TAB PO SCH (19:37)
[2020-12-23] MEDS: ACETAMIN/BUTALBITAL/CAFFEINE TAB PO PRN (19:43)
[2020-12-24] VITALS (12 sets, daily range): BP systolic 106–135; BP diastolic 71–83
[2020-12-24 05:26] LABS: BASOPHILS % 0.6 % (0.0-1.0); EOSINOPHILS # (AUTO) 0.2 (0.0-0.4); EOSINOPHILS % 2.8 % (0.0-6.0); HEMATOCRIT 40.8 % (38.2-49.6); HEMOGLOBIN 13.9 g/dL (14.0-18.0); LYMPHOCYTES % 14.3 % (18.0-39.1); MEAN CORPUSCULAR HEMOGLOBIN 33.7 pg (28-32); MEAN CORPUSCULAR HGB CONC 34.1 g/dL (31-35); MEAN CORPUSCULAR VOLUME 98.8 fL (81-99); MONOCYTES # (AUTO) 0.9 (0.2-0.8); MONOCYTES % 12.4 % (4.4-11.3); NEUTROPHILS # (AUTO) 4.9 (2.1-6.9); NEUTROPHILS % 69.6 % (38.7-80.0); PLATELET COUNT 177 x10e3/uL (140-360); RED BLOOD COUNT 4.13 x10e6/uL (4.3-5.7); RED CELL DISTRIBUTION WIDTH 13.4 % (11.7-14.4)
[2020-12-24 05:52] LABS: ALBUMIN 3.6 g/dL (3.5-5.0); ALBUMIN/GLOBULIN RATIO 1.2 (0.8-2.0); ANION GAP 14.4 mmol/L (8-16); CALCIUM 9.6 mg/dL (8.4-10.2); CREATININE, SERUM 1.09 mg/dL (0.72-1.25); POTASSIUM 3.4 mmol/L (3.5-5.1)
[2020-12-24] MEDS ORDERED: HEPARIN SOD (PORCINE) 1000 UNIT/ML 30ML ONE (07:20)
[2020-12-24] MEDS ORDERED: MIDAZOLAM HCL 2 MG/2 ML VIAL ONE (07:20)
[2020-12-24] MEDS ORDERED: VERAPAMIL HCL 2.5 MG/ML 2 ML VIAL ONE (07:20)
[2020-12-24] MEDS ORDERED: LIDOCAINE HCL 2% LOCAL 20 ML VIAL ONE (07:21)
[2020-12-24] MEDS ORDERED: FENTANYL CITRATE/PF 100MCG/2 ML INJ ONE (07:21)
[2020-12-24] MEDS ORDERED: NITROGLYCERIN/D5W 200 MCG/ML 250 ML ONE (07:21)
[2020-12-24] MEDS ORDERED: SODIUM CHLORIDE 0.9% 1000ML 1,000 ML ONE (07:21)
[2020-12-24] MEDS ORDERED: IOPAMIDOL 370 MG/ML 200 ML INFUS..BTL INJ ONE (07:21)
[2020-12-24] MEDS ORDERED: HEPARIN SOD/SOD CHLORIDE 2,000 ML ONE (07:21)
[2020-12-24] MEDS ORDERED: POTASSIUM CHLORIDE 10MEQ EA PO SCH (09:00)
[2020-12-24] MEDS ORDERED: FUROSEMIDE INJ 10 MG/ML 4 ML VIAL IV SCH (09:00)
[2020-12-24] MEDS ORDERED: FUROSEMIDE 20 MG TAB PO SCH (09:00)
[2020-12-24] MEDS ORDERED: ENTRESTO 49 MG1 EACH PO (10:32)
[2020-12-24] MEDS ORDERED: Atorvastatin PO (10:32)
[2020-12-24] MEDS ORDERED: FUROSEMIDE20 MG PO (10:32)
[2020-12-24] MEDS ORDERED: ASPIRIN EC81 MG PO (10:32)
[2020-12-24] MEDS ORDERED: MIRALAX17 GM PO (10:47)
[2020-12-24] MEDS ORDERED: FLOMAX0.4 MG PO (10:49)
[2020-12-24] MEDS: ASPIRIN 81 MG ENTERIC COATED PO SCH (11:01)
[2020-12-24] MEDS: DOCUSATE SODIUM 100 MG CAP PO SCH (11:01)
[2020-12-24] MEDS: CARVEDILOL 12.5 MG TAB PO SCH (11:02)
[2020-12-24] MEDS: OMEGA 3 POLYUNSAT FATTY ACIDS 1000 MG SOFTGEL PO SCH (11:02)
[2020-12-24] MEDS: HYDRALAZINE HCL 100 MG TABLET PO SCH (11:02)
[2020-12-24] MEDS: SACUBITRIL/VALSARTAN 1 EACH TABLET PO SCH (11:02)
[2020-12-24] MEDS ORDERED: ONDANSETRON HCL 4 MG ORAL DISINTEGRATING TAB PO PRN (13:15)
== END 2020-12-24 14:12 | disposition home or self-care (01) | DRG 286 ==
LOC: ER 18:23 → ERHOLD 20:11 → MED/SURG 21:06
PROVIDERS: ADMIT Internal Medicine; ATTEND Internal Medicine
PROC: 4A023N7 Measurement of Cardiac Sampling and Pressure, Left Heart, Percutaneous Approach (ICD-10-PCS; principal; 2020-12-24)
PROC: B2111ZZ Fluoroscopy of Multiple Coronary Arteries using Low Osmolar Contrast (ICD-10-PCS; 2020-12-24)
PROC: B2151ZZ Fluoroscopy of Left Heart using Low Osmolar Contrast (ICD-10-PCS; 2020-12-24)
DX: I11.0 Hypertensive heart disease with heart failure (principal); I50.43 Acute on chronic combined systolic (congestive) and diastolic (congestive) heart failure; Z95.810 Presence of automatic (implantable) cardiac defibrillator; R51.9 Headache, unspecified; N40.1 Benign prostatic hyperplasia with lower urinary tract symptoms; R35.1 Nocturia; E87.6 Hypokalemia; I49.5 Sick sinus syndrome; Z20.822 Contact with and (suspected) exposure to COVID-19
CPT/HCPCS: 36415; 71045; 76937; 80048; 80053; 82550; 82553; 83880; 84484; 85025; 85610; 85730; 93005; 93306; 93458; 94799; 99152; 99153; 99284; C1769; C1887; J1644; J1940; J2001; J2250; J3010; J7030; Q9967; U0002

== ENCOUNTER 2021-05-15 06:33 | Inpatient (IN) | payer MEDICARE ==
[2021-05-14 16:03] LABS: BASOPHILS % 0.7 % (0.0-1.0); EOSINOPHILS # (AUTO) 0.2 (0.0-0.4); EOSINOPHILS % 2.8 % (0.0-6.0); HEMATOCRIT 37.7 % (38.2-49.6); HEMOGLOBIN 12.9 g/dL (14.0-18.0); LYMPHOCYTES # (AUTO) 1.2 (1.0-3.2); MEAN CORPUSCULAR HEMOGLOBIN 33.8 pg (28-32); MEAN CORPUSCULAR HGB CONC 34.2 g/dL (31-35); MEAN CORPUSCULAR VOLUME 98.7 fL (81-99); MONOCYTES # (AUTO) 0.7 (0.2-0.8); MONOCYTES % 11.7 % (4.4-11.3); NEUTROPHILS % 65.5 % (38.7-80.0); PLATELET COUNT 184 x10e3/uL (140-360); RED BLOOD COUNT 3.82 x10e6/uL (4.3-5.7); RED CELL DISTRIBUTION WIDTH 13.1 % (11.7-14.4)
[2021-05-14 16:19] LABS: ANION GAP 12.3 mmol/L (8-16); CALCIUM 9.5 mg/dL (8.4-10.2); CREATININE, SERUM 0.98 mg/dL (0.72-1.25); POTASSIUM 4.3 mmol/L (3.5-5.1)
[~2021-05-15] VITALS: Ht 180.3 cm; Wt 95.3 kg
[~2021-05-15 06:33] MED LIST changes: +ASPIRIN EC81 MG PO; +Atorvastatin PO; +ENTRESTO 49 MG1 EACH PO; +FLOMAX0.4 MG PO; +FUROSEMIDE20 MG PO; +MIRALAX17 GM PO; +OCUVITE TABLET1 EAC1 PO
[2021-05-15] MEDS ORDERED: SODIUM CHLORIDE 0.9% 1000ML 1,000 ML ONE (06:52)
[2021-05-15] MEDS ORDERED: SODIUM CHLORIDE 0.9% 50ML 50 ML ONE (07:07)
[2021-05-15] MEDS ORDERED: GENTAMICIN 80MG/NS 100 ML 200 ML IV ONE (07:07)
[2021-05-15] MEDS ORDERED: CEFTRIAXONE 1 GM VIAL ONE (07:07)
[2021-05-15] MEDS ORDERED: B&O 60MG R/S 60 MG SUPP PR ONE (09:40)
[2021-05-15] MEDS ORDERED: IOPAMIDOL 300MG/ML 50ML INFUS..BTL IV ONE (09:40)
[2021-05-15] MEDS ORDERED: B&O 60MG R/S 60 MG SUPP PR PRN (10:45)
[2021-05-15] MEDS ORDERED: DIPHENHYDRAMINE HCL 25 MG CAP PO PRN (10:45)
[2021-05-15] MEDS ORDERED: ONDANSETRON HCL INJ 2MG/ML 2ML 2 MG/ML VIAL IV PRN (10:45)
[2021-05-15] MEDS ORDERED: PHENAZOPYRIDINE HCL 100 MG TAB PO PRN (10:45)
[2021-05-15 11:10] LABS: BASOPHILS % 0.5 % (0.0-1.0); EOSINOPHILS # (AUTO) 0.1 (0.0-0.4); EOSINOPHILS % 1.8 % (0.0-6.0); HEMATOCRIT 33.6 % (38.2-49.6); HEMOGLOBIN 11.4 g/dL (14.0-18.0); LYMPHOCYTES # (AUTO) 0.7 (1.0-3.2); LYMPHOCYTES % 12.5 % (18.0-39.1); MEAN CORPUSCULAR HEMOGLOBIN 33.7 pg (28-32); MEAN CORPUSCULAR HGB CONC 33.9 g/dL (31-35); MEAN CORPUSCULAR VOLUME 99.4 fL (81-99); MONOCYTES # (AUTO) 0.5 (0.2-0.8); NEUTROPHILS # (AUTO) 4.2 (2.1-6.9); NEUTROPHILS % 75.7 % (38.7-80.0); PLATELET COUNT 142 x10e3/uL (140-360); RED BLOOD COUNT 3.38 x10e6/uL (4.3-5.7); RED CELL DISTRIBUTION WIDTH 12.8 % (11.7-14.4)
[2021-05-15 11:39] LABS: ANION GAP 8.7 mmol/L (8-16); CALCIUM 7.4 mg/dL (8.4-10.2); CREATININE, SERUM 0.73 mg/dL (0.72-1.25); POTASSIUM 3.7 mmol/L (3.5-5.1)
[2021-05-15] MEDS: HYDROCODONE/APAP 10MG-325MG TAB PO PRN ×2 (12:27→22:40)
[2021-05-15] MEDS: D5.45%NS/KCL 20MEQ 1,000 ML IV SCH ×2 (12:28→18:19)
[2021-05-15] MEDS ORDERED: POVIDONE IODINE 0.05% 0.05 % ML PO ONE (12:42)
[2021-05-15] MEDS ORDERED: LIDOCAINE HCL 2% LOCAL INJ 5 ML SDV VIAL INJ ONE (12:42)
[2021-05-15] MEDS ORDERED: SEVOFLURANE INHAL SOLN 250 ML PEN BTL ONE (12:42)
[2021-05-15] MEDS ORDERED: ONDANSETRON HCL INJ 2MG/ML 2ML 2 MG/ML VIAL ONE (12:42)
[2021-05-15] MEDS ORDERED: PROPOFOL IV EMULSION 10 MG/ML 20 ML VIAL ONE (12:42)
[2021-05-15] MEDS ORDERED: DEXAMETHASONE SOD PHOS INJ 4 MG/ML SDV ONE (12:42)
[2021-05-15] MEDS ORDERED: FENTANYL CITRATE/PF 100MCG/2 ML INJ ONE (13:05)
[2021-05-15 15:27] VITALS: BP 163/85
[2021-05-15 15:30] VITALS: BP 163/85
[2021-05-15 15:31] VITALS: BP 163/85
[2021-05-15 15:56] VITALS: BP 163/85
[2021-05-15] MEDS: HYDRALAZINE HCL 100 MG TABLET PO SCH (16:56)
[2021-05-15] MEDS: CARVEDILOL 12.5 MG TAB PO SCH (16:56)
[2021-05-15] MEDS: DOCUSATE SODIUM 100 MG CAP PO SCH (16:56)
[2021-05-15 20:00] VITALS: BP 165/93
[2021-05-15] MEDS ORDERED: CALCIUM CARBONATE 500 MG CHEWABLE TABS PO PRN (20:30)
[2021-05-16] VITALS (7 sets, daily range): BP systolic 142–161; BP diastolic 77–91
[2021-05-16] MEDS: D5.45%NS/KCL 20MEQ 1,000 ML IV SCH ×3 (02:04→18:45)
[2021-05-16 06:37] LABS: BASOPHILS % 0.2 % (0.0-1.0); EOSINOPHILS % 0.1 % (0.0-6.0); HEMATOCRIT 34.5 % (38.2-49.6); HEMOGLOBIN 11.7 g/dL (14.0-18.0); LYMPHOCYTES # (AUTO) 0.8 (1.0-3.2); LYMPHOCYTES % 7.4 % (18.0-39.1); MEAN CORPUSCULAR HEMOGLOBIN 33.4 pg (28-32); MEAN CORPUSCULAR HGB CONC 33.9 g/dL (31-35); MEAN CORPUSCULAR VOLUME 98.6 fL (81-99); MONOCYTES # (AUTO) 0.9 (0.2-0.8); MONOCYTES % 8.4 % (4.4-11.3); NEUTROPHILS # (AUTO) 8.5 (2.1-6.9); NEUTROPHILS % 83.5 % (38.7-80.0); PLATELET COUNT 163 x10e3/uL (140-360); RED CELL DISTRIBUTION WIDTH 12.8 % (11.7-14.4)
[2021-05-16 06:52] LABS: CALCIUM 8.4 mg/dL (8.4-10.2); CREATININE, SERUM 0.89 mg/dL (0.72-1.25)
[2021-05-16] MEDS: DOCUSATE SODIUM 100 MG CAP PO SCH ×2 (08:14→17:07)
[2021-05-16] MEDS: CARVEDILOL 12.5 MG TAB PO SCH (08:14)
[2021-05-16] MEDS: HYDRALAZINE HCL 100 MG TABLET PO SCH (08:14)
[2021-05-16] MEDS ORDERED: MAALOX/LIDOCAINE/BENADRYL/NYST 30 ML BTL PO PRN (08:45)
[2021-05-16] MEDS ORDERED: CEFTRIAXONE 1 GM in SODIUM CHLORIDE 0.9% 50ML 50 ML IV SCH (09:00)
[2021-05-16] MEDS ORDERED: FAMOTIDINE 20 MG/2 ML VIAL IV ONE (09:00)
[2021-05-16] MEDS ORDERED: DONNATAL/LIDOCAINE/MAALOX 30 ML SUSP PO PRN (09:00)
[2021-05-16] MEDS: FAMOTIDINE 20 MG TAB PO SCH (17:07)
[2021-05-16] MEDS ORDERED: LIDOCAINE VISC 2% SOLN 15 ML UDC ONE (20:57)
[2021-05-16] MEDS ORDERED: MELATONIN 5 MG TABLET PO SCH (21:00)
[2021-05-16] MEDS: HYDROCODONE/APAP 10MG-325MG TAB PO PRN (21:13)
[2021-05-17] VITALS: BP 146/79
[2021-05-17 04:00] VITALS: BP 161/94
[2021-05-17] MEDS: D5.45%NS/KCL 20MEQ 1,000 ML IV SCH (04:06)
[2021-05-17 05:54] LABS: BASOPHILS % 0.3 % (0.0-1.0); EOSINOPHILS # (AUTO) 0.1 (0.0-0.4); EOSINOPHILS % 1.3 % (0.0-6.0); HEMATOCRIT 33.1 % (38.2-49.6); HEMOGLOBIN 11.4 g/dL (14.0-18.0); MEAN CORPUSCULAR HEMOGLOBIN 34.3 pg (28-32); MEAN CORPUSCULAR HGB CONC 34.4 g/dL (31-35); MEAN CORPUSCULAR VOLUME 99.7 fL (81-99); MONOCYTES # (AUTO) 0.8 (0.2-0.8); MONOCYTES % 9.2 % (4.4-11.3); NEUTROPHILS # (AUTO) 6.7 (2.1-6.9); PLATELET COUNT 144 x10e3/uL (140-360); RED BLOOD COUNT 3.32 x10e6/uL (4.3-5.7)
[2021-05-17 06:20] LABS: ANION GAP 9.8 mmol/L (8-16); CALCIUM 8.8 mg/dL (8.4-10.2); CREATININE, SERUM 0.97 mg/dL (0.72-1.25); POTASSIUM 3.8 mmol/L (3.5-5.1)
[2021-05-17 08:26] VITALS: BP 170/90
[2021-05-17] MEDS: FAMOTIDINE 20 MG TAB PO SCH ×2 (08:34→17:15)
[2021-05-17] MEDS: DOCUSATE SODIUM 100 MG CAP PO SCH ×2 (08:35→17:15)
[2021-05-17] MEDS: HYDRALAZINE HCL 100 MG TABLET PO SCH (08:36)
[2021-05-17] MEDS: CARVEDILOL 12.5 MG TAB PO SCH (08:36)
[2021-05-17] MEDS: HYDROCODONE/APAP 10MG-325MG TAB PO PRN (08:37)
[2021-05-17] MEDS ORDERED: CEFUROXIME AXETIL 250 MG TAB PO SCH (09:00)
[2021-05-17 11:59] VITALS: BP 152/87
[2021-05-17 16:49] VITALS: BP 182/98
[2021-05-17] MEDS ORDERED: LEVOFLOXACIN250 MG PO (19:58)
== END 2021-05-17 20:33 | disposition home or self-care (01) | DRG 713 ==
LOC: OR 06:33 → PACU V 10:37 → MED/SURG 11:23
PROVIDERS: ADMIT Internal Medicine; ATTEND Internal Medicine
PROC: 0T7D8ZZ Dilation of Urethra, Via Natural or Artificial Opening Endoscopic (ICD-10-PCS; 2021-05-15)
PROC: BT141ZZ Fluoroscopy of Kidneys, Ureters and Bladder using Low Osmolar Contrast (ICD-10-PCS; 2021-05-15)
PROC: 0V508ZZ Destruction of Prostate, Via Natural or Artificial Opening Endoscopic (ICD-10-PCS; principal; 2021-05-15 09:31)
DX: N40.1 Benign prostatic hyperplasia with lower urinary tract symptoms (principal); N13.8 Other obstructive and reflux uropathy; N35.912 Unspecified bulbous urethral stricture, male; R31.29 Other microscopic hematuria; R39.14 Feeling of incomplete bladder emptying; R35.1 Nocturia; E29.1 Testicular hypofunction; K21.9 Gastro-esophageal reflux disease without esophagitis; Z20.822 Contact with and (suspected) exposure to COVID-19; I10 Essential (primary) hypertension
CPT/HCPCS: 36415; 74420; 80048; 83735; 85025; 93005; 94799; 99251; C1758; J0696; J1100; J1580; J2001; J2405; J3010; J7030; U0002

== ENCOUNTER → 2021-07-25 | Day surgery (SDC) | payer MEDICARE ==
[2021-07-22 10:27] LABS: BASOPHILS % 0.5 % (0.0-1.0); EOSINOPHILS # (AUTO) 0.2 (0.0-0.4); EOSINOPHILS % 2.6 % (0.0-6.0); HEMATOCRIT 37.9 % (38.2-49.6); HEMOGLOBIN 12.9 g/dL (14.0-18.0); LYMPHOCYTES # (AUTO) 0.8 (1.0-3.2); LYMPHOCYTES % 12.5 % (18.0-39.1); MEAN CORPUSCULAR HEMOGLOBIN 33.3 pg (28-32); MEAN CORPUSCULAR VOLUME 97.9 fL (81-99); MONOCYTES # (AUTO) 0.5 (0.2-0.8); MONOCYTES % 8.8 % (4.4-11.3); NEUTROPHILS # (AUTO) 4.6 (2.1-6.9); NEUTROPHILS % 75.4 % (38.7-80.0); PLATELET COUNT 170 x10e3/uL (140-360); RED BLOOD COUNT 3.87 x10e6/uL (4.3-5.7); RED CELL DISTRIBUTION WIDTH 12.7 % (11.7-14.4)
[~2021-07-25] MED LIST changes: +ACETAMINOPHEN-1 EAC4 PO; +BUPIVACAINE HC 0.75% PF 10ML VIAL INJ ONE; +DEXAMETHASONE SOD PHOS INJ 4 MG/ML SDV ONE; +FENTANYL CITRATE/PF 100MCG/2 ML INJ ONE; +LEVOFLOXACIN250 MG PO; +LIDOCAINE HCL 2% LOCAL INJ 5 ML SDV VIAL INJ ONE; +MUPIROCIN 2% OINT 22 GM TUBE ONE; +POVIDONE IODINE 0.05% 0.05 % ML PO ONE; +PROPOFOL IV EMULSION 10 MG/ML 20 ML VIAL ONE; +SEVOFLURANE INHAL SOLN 250 ML PEN BTL ONE
[2021-07-25 08:20] VITALS: BP 140/85
== END | disposition home or self-care (01) ==
LOC: OR 06:14
PROVIDERS: ATTEND Plastic Surgery
DX: M65.332 Trigger finger, left middle finger (principal); I10 Essential (primary) hypertension; Z01.812 Encounter for preprocedural laboratory examination; Z20.822 Contact with and (suspected) exposure to COVID-19; Z79.899 Other long term (current) drug therapy; Z95.0 Presence of cardiac pacemaker
CPT/HCPCS: 26055; 36415; 85025; J0690; J1100; J2001; J2704; J3010; U0002

== ENCOUNTER 2023-09-09 13:22 | Inpatient (IN) | payer MEDICARE ==
[~2023-09-09] VITALS: Ht 180.3 cm; Wt 88.5 kg
[~2023-09-09 13:22] MED LIST changes: -BUPIVACAINE HC 0.75% PF 10ML VIAL INJ ONE; -DEXAMETHASONE SOD PHOS INJ 4 MG/ML SDV ONE; -FENTANYL CITRATE/PF 100MCG/2 ML INJ ONE; -LIDOCAINE HCL 2% LOCAL INJ 5 ML SDV VIAL INJ ONE; -MUPIROCIN 2% OINT 22 GM TUBE ONE; -POVIDONE IODINE 0.05% 0.05 % ML PO ONE; -PROPOFOL IV EMULSION 10 MG/ML 20 ML VIAL ONE; -SEVOFLURANE INHAL SOLN 250 ML PEN BTL ONE
[2023-09-09 14:08] VITALS: TEMP 97.6
[2023-09-09 14:31] LABS: BASOPHILS % 0.3 % (0.0-1.0); EOSINOPHILS # (AUTO) 0.1 (0.0-0.4); EOSINOPHILS % 1.9 % (0.0-6.0); HEMATOCRIT 37.5 % (38.2-49.6); HEMOGLOBIN 13.1 g/dL (14.0-18.0); LYMPHOCYTES # (AUTO) 0.8 (1.0-3.2); LYMPHOCYTES % 11.2 % (18.0-39.1); MEAN CORPUSCULAR HEMOGLOBIN 32.6 pg (28-32); MEAN CORPUSCULAR HGB CONC 34.9 g/dL (31-35); MEAN CORPUSCULAR VOLUME 93.3 fL (81-99); MONOCYTES # (AUTO) 0.7 (0.2-0.8); MONOCYTES % 9.7 % (4.4-11.3); NEUTROPHILS # (AUTO) 5.2 (2.1-6.9); NEUTROPHILS % 76.8 % (38.7-80.0); PLATELET COUNT 140 x10e3/uL (140-360); RED BLOOD COUNT 4.02 x10e6/uL (4.3-5.7); RED CELL DISTRIBUTION WIDTH 12.9 % (11.7-14.4)
[2023-09-09 14:44] LABS: ALBUMIN 3.6 g/dL (3.5-5.0); ALBUMIN/GLOBULIN RATIO 1.3 (0.8-2.0); ANION GAP 14.3 mmol/L (8-16); BILIRUBIN,TOTAL 1.3 mg/dL (0.2-1.2); CALCIUM 9.9 mg/dL (8.4-10.2); CREATININE, SERUM 1.81 mg/dL (0.72-1.25); TOTAL PROTEIN 6.3 g/dL (6.5-8.1)
[2023-09-09 14:45] LABS: POTASSIUM 3.3 mmol/L (3.5-5.1)
[2023-09-09 14:50] LABS: TROPONIN I 0.232 ng/mL (0-0.300)
[2023-09-09 17:36] VITALS: PULSE 61; RESP 14; O2SAT 97
[2023-09-09 18:10] VITALS: PULSE 60; RESP 19
[2023-09-09] MEDS: ASPIRIN 81 MG CHEW TAB PO ONE (18:44)
[2023-09-09 20:00] VITALS: BP 174/92; PULSE 61; RESP 18; TEMP 97.6; O2SAT 99
[2023-09-09 21:30] VITALS: BP 174/92; PULSE 61; RESP 18; TEMP 97.6; O2SAT 99
[2023-09-09] MEDS ORDERED: HYDRALAZINE HCL 25 MG TAB PO ONE (21:30)
[2023-09-09] MEDS: HYDRALAZINE HCL 25 MG TAB PO ONE (21:58)
[2023-09-09] MEDS: CARVEDILOL 12.5 MG TAB PO ONE (21:58)
[2023-09-09 23:53] LABS: TROPONIN I 0.212 ng/mL (0-0.300)
[2023-09-10] VITALS (10 sets, daily range): BP systolic 118–149; BP diastolic 49–86; PULSE 60–65; RESP 17–19; TEMP 97.4–98.9; O2SAT 96–99
[2023-09-10 06:31] LABS: TROPONIN I 0.194 ng/mL (0-0.300)
[2023-09-10 08:25] LABS: BILIRUBIN,URINE SMALL (NEGATIVE); CLARITY,URINE CLEAR (CLEAR); COLOR,URINE YELLOW (YELLOW); GLUCOSE, URINE NEGATIVE (NEGATIVE); KETONES,URINE NEGATIVE (NEGATIVE); LEUKOCYTE ESTERASE ,URINE NEGATIVE (NEGATIVE); NITRITE,URINE NEGATIVE (NEGATIVE); PH,URINE 5.5 (5 - 7); PROTEIN,URINE DIPSTICK 1+ (NEGATIVE)
[2023-09-10 08:26] LABS: BACTERIA,URINE FEW /HPF; EPITHELIAL CELLS,URINE FEW /LPF; RBC,URINE 0-5 /HPF (0-5)
[2023-09-10] MEDS: HYDRALAZINE HCL 25 MG TAB PO SCH (08:59)
[2023-09-10] MEDS: CARVEDILOL 12.5 MG TAB PO SCH (08:59)
[2023-09-10] MEDS ORDERED: HYDRALAZINE HCL 100 MG TABLET PO SCH (09:00)
[2023-09-10] MEDS: SODIUM CHLORIDE 0.9% 500ML 500 ML IV ONE (14:33)
[2023-09-10] MEDS: APIXABAN 5 MG TABLET PO ONE (18:54)
[2023-09-11] VITALS (7 sets, daily range): BP systolic 138–167; BP diastolic 61–97; PULSE 60–64; RESP 18–19; TEMP 97.6–98.5; O2SAT 96–100
[2023-09-11 06:02] LABS: BASOPHILS % 0.8 % (0.0-1.0); EOSINOPHILS # (AUTO) 0.4 (0.0-0.4); EOSINOPHILS % 6.8 % (0.0-6.0); HEMATOCRIT 35.1 % (38.2-49.6); HEMOGLOBIN 11.9 g/dL (14.0-18.0); LYMPHOCYTES # (AUTO) 0.9 (1.0-3.2); LYMPHOCYTES % 16.5 % (18.0-39.1); MEAN CORPUSCULAR HEMOGLOBIN 31.9 pg (28-32); MEAN CORPUSCULAR HGB CONC 33.9 g/dL (31-35); MEAN CORPUSCULAR VOLUME 94.1 fL (81-99); MONOCYTES # (AUTO) 0.5 (0.2-0.8); MONOCYTES % 10.2 % (4.4-11.3); NEUTROPHILS # (AUTO) 3.5 (2.1-6.9); NEUTROPHILS % 65.5 % (38.7-80.0); PLATELET COUNT 123 x10e3/uL (140-360); RED BLOOD COUNT 3.73 x10e6/uL (4.3-5.7); RED CELL DISTRIBUTION WIDTH 12.6 % (11.7-14.4); WHITE BLOOD COUNT 5.28 x10e3/uL (4.8-10.8)
[2023-09-11 06:25] LABS: ANION GAP 11.8 mmol/L (8-16); CALCIUM 9.3 mg/dL (8.4-10.2); CHOL/HDL RATIO 4.6 (3.9-4.7); CREATININE, SERUM 1.48 mg/dL (0.72-1.25)
[2023-09-11 06:28] LABS: POTASSIUM 2.8 mmol/L (3.5-5.1)
[2023-09-11 06:32] LABS: B-TYPE NATRIURETIC PEPTIDE2 458.9 pg/mL (0-100)
[2023-09-11] MEDS: POTASSIUM CHLORIDE 20 MEQ TAB CR PO ONE (06:46)
[2023-09-11] MEDS: APIXABAN 5 MG TABLET PO SCH (09:04)
[2023-09-12] VITALS (8 sets, daily range): BP systolic 106–160; BP diastolic 69–99; PULSE 59–92; RESP 18–20; TEMP 97.5–98.8; O2SAT 99–100
[2023-09-12 05:55] LABS: BASOPHILS % 0.8 % (0.0-1.0); EOSINOPHILS # (AUTO) 0.3 (0.0-0.4); EOSINOPHILS % 5.7 % (0.0-6.0); HEMATOCRIT 35.3 % (38.2-49.6); HEMOGLOBIN 11.9 g/dL (14.0-18.0); LYMPHOCYTES # (AUTO) 0.9 (1.0-3.2); LYMPHOCYTES % 16.1 % (18.0-39.1); MEAN CORPUSCULAR HEMOGLOBIN 32.1 pg (28-32); MEAN CORPUSCULAR HGB CONC 33.7 g/dL (31-35); MEAN CORPUSCULAR VOLUME 95.1 fL (81-99); MONOCYTES # (AUTO) 0.6 (0.2-0.8); MONOCYTES % 11.4 % (4.4-11.3); NEUTROPHILS # (AUTO) 3.5 (2.1-6.9); NEUTROPHILS % 65.6 % (38.7-80.0); PLATELET COUNT 115 x10e3/uL (140-360); RED BLOOD COUNT 3.71 x10e6/uL (4.3-5.7); RED CELL DISTRIBUTION WIDTH 12.7 % (11.7-14.4); WHITE BLOOD COUNT 5.28 x10e3/uL (4.8-10.8)
[2023-09-12 06:17] LABS: ANION GAP 6.6 mmol/L (8-16); CALCIUM 9.8 mg/dL (8.4-10.2); CREATININE, SERUM 1.26 mg/dL (0.72-1.25); MAGNESIUM 1.4 MG/DL (1.3-2.1); POTASSIUM 3.6 mmol/L (3.5-5.1)
[2023-09-12] MEDS: MAGNESIUM SULFATE 2GM/50ML 50 ML IV ONE (20:12)
[2023-09-13] VITALS (11 sets, daily range): BP systolic 123–164; BP diastolic 79–95; PULSE 60–75; RESP 17–20; TEMP 97.9–98.7; O2SAT 96–100
[2023-09-14] VITALS: BP 154/85; PULSE 62; RESP 20; TEMP 97.9; O2SAT 100
[2023-09-14 04:00] VITALS: BP 152/90; PULSE 59; RESP 20; TEMP 98.1; O2SAT 97
[2023-09-14 07:59] VITALS: BP 158/82; PULSE 61; RESP 18; TEMP 97.8; O2SAT 96
[2023-09-14 08:05] VITALS: BP 158/82; PULSE 61; RESP 18; TEMP 97.8; O2SAT 96
[2023-09-14 12:06] VITALS: BP 154/81; PULSE 60; RESP 18; TEMP 97.6; O2SAT 99
[2023-09-14] MEDS ORDERED: HYDRALAZINE HCL25 MG PO (12:15)
[2023-09-14] MEDS ORDERED: ELIQUIS5 MG PO (12:15)
== END 2023-09-14 12:53 | disposition home or self-care (01) | DRG 682 ==
LOC: ER 15:15 → ERHOLD 17:25 → MED/SURG3 18:25
PROVIDERS: ADMIT Internal Medicine; ATTEND Internal Medicine
DX: N17.9 Acute kidney failure, unspecified (principal); G93.41 Metabolic encephalopathy; I44.2 Atrioventricular block, complete; I49.5 Sick sinus syndrome; G31.9 Degenerative disease of nervous system, unspecified; F02.80 Dementia in other diseases classified elsewhere, unspecified severity, without behavioral disturbance, psychotic disturbance, mood disturbance, and anxiety; I48.0 Paroxysmal atrial fibrillation; E86.0 Dehydration; E78.5 Hyperlipidemia, unspecified; E83.42 Hypomagnesemia; I10 Essential (primary) hypertension; R53.81 Other malaise; N40.0 Benign prostatic hyperplasia without lower urinary tract symptoms; Z11.52 Encounter for screening for COVID-19; Z79.01 Long term (current) use of anticoagulants; Z95.810 Presence of automatic (implantable) cardiac defibrillator; Z90.79 Acquired absence of other genital organ(s); Z86.73 Personal history of transient ischemic attack (TIA), and cerebral infarction without residual deficits; Z87.891 Personal history of nicotine dependence
CPT/HCPCS: 36415; 70450; 71045; 80048; 80053; 80061; 81001; 82550; 83036; 83735; 83880; 84132; 84484; 85025; 93005; 93306; 94799; 99252; 99284; J3475; J7040; U0002

== ENCOUNTER 2024-04-04 10:08 | Day surgery (SDC) | payer MEDICARE ==
[2024-03-31 10:50] LABS: BASOPHILS # (AUTO) 0.1 (0.0-0.1); BASOPHILS % 0.8 % (0.0-1.0); EOSINOPHILS # (AUTO) 0.7 (0.0-0.4); EOSINOPHILS % 8.2 % (0.0-6.0); HEMATOCRIT 36.1 % (38.2-49.6); HEMOGLOBIN 12.6 g/dL (14.0-18.0); LYMPHOCYTES # (AUTO) 0.7 (1.0-3.2); LYMPHOCYTES % 7.4 % (18.0-39.1); MEAN CORPUSCULAR HEMOGLOBIN 33.7 pg (28-32); MEAN CORPUSCULAR HGB CONC 34.9 g/dL (31-35); MEAN CORPUSCULAR VOLUME 96.5 fL (81-99); MONOCYTES # (AUTO) 0.9 (0.2-0.8); MONOCYTES % 10.1 % (4.4-11.3); NEUTROPHILS # (AUTO) 6.4 (2.1-6.9); NEUTROPHILS % 73.2 % (38.7-80.0); PLATELET COUNT 213 x10e3/uL (140-360); RED BLOOD COUNT 3.74 x10e6/uL (4.3-5.7); RED CELL DISTRIBUTION WIDTH 13.2 % (11.7-14.4)
[2024-03-31 11:05] LABS: INR 0.94; PROTHROMBIN TIME 13.2 seconds (11.9-14.5)
[2024-03-31 11:06] LABS: PARTIAL THROMBOPLASTIN TIME 29.3 seconds (23.8-35.5)
[2024-03-31 11:14] LABS: ANION GAP 14.9 mmol/L (8-16); CALCIUM 10.5 mg/dL (8.4-10.2); CHOL/HDL RATIO 3.9 (3.9-4.7); CREATININE, SERUM 1.26 mg/dL (0.72-1.25); POTASSIUM 3.9 mmol/L (3.5-5.1)
[2024-04-04] VITALS (10 sets, daily range): BP systolic 149–175; BP diastolic 77–86; PULSE 60; RESP 10–18; TEMP 97.3–97.5; O2SAT 93–100
[~2024-04-04] VITALS: Ht 180.3 cm; Wt 86.2 kg
[~2024-04-04 10:08] MED LIST changes: +ASPIRIN CHEW81 MG PO; +ATORVASTATIN CA40 MG PO; +ELIQUIS5 MG PO; +FENTANYL CITRATE/PF 100MCG/2 ML INJ ONE; +FUROSEMIDE40 MG PO; +GENTAMICIN SULFATE 40 MG/ML 2 ML VIAL ONE; +HYDRALAZINE HCL25 MG PO; +LIDOCAINE HCL 2% LOCAL 20 ML VIAL ONE; +MIDAZOLAM HCL 2 MG/2 ML VIAL ONE; +SODIUM BICARBONATE 8.4% SYRING 50 ML ONE; +SODIUM CHLORIDE 0.9% 1000ML 1,000 ML ONE; +SODIUM CHLORIDE 0.9% 500ML 500 ML ONE; +Vancomycin IV 1 GM VIAL ONE
== END 2024-04-04 12:00 | disposition home or self-care (01) ==
LOC: CATH LAB 10:08
PROVIDERS: ATTEND Internal Medicine Cardiovascular Disease
DX: I49.5 Sick sinus syndrome (principal); I48.11 Longstanding persistent atrial fibrillation; I10 Essential (primary) hypertension; Z01.810 Encounter for preprocedural cardiovascular examination; Z01.812 Encounter for preprocedural laboratory examination; Z01.818 Encounter for other preprocedural examination; Z79.02 Long term (current) use of antithrombotics/antiplatelets; Z79.82 Long term (current) use of aspirin; Z79.899 Other long term (current) drug therapy; Z68.31 Body mass index [BMI] 31.0-31.9, adult
CPT/HCPCS: 33228; 36415; 71046; 80048; 80061; 85025; 85610; 85730; 93005; C1785; J0690; J1580; J2003; J2250; J3010; J3370; J7030; J7040; 33210; 33229; 99152; 99153